=== PATIENT | female | born 1955 | race Caucasian/White ===

== ENCOUNTER → 2024-06-19 12:23 | Outpatient (REF) | payer MEDICARE, OTHER, SELFPAY | LOC: HWWDC 12:23 | PROVIDERS: ATTENDING PHYSICIAN Family Medicine | DX: Z12.31 Encounter for screening mammogram for malignant neoplasm of breast (principal) | CPT/HCPCS: 77063; 77067 ==

== ENCOUNTER → 2024-11-07 10:55 | Outpatient (REF) | payer MEDICARE, OTHER, SELFPAY | LOC: MRI 3T 10:55 | PROVIDERS: ATTENDING PHYSICIAN Physician Assistant; FAMILY PHYSICIAN Family Medicine | DX: M79.671 Pain in right foot (principal) | CPT/HCPCS: 73718 ==

== ENCOUNTER → 2025-01-03 11:59 | Outpatient (REF) | payer MEDICARE, OTHER, SELFPAY | LOC: MRI 3T 11:59 | PROVIDERS: ATTENDING PHYSICIAN Physical Medicine & Rehabilitation; FAMILY PHYSICIAN Family Medicine | DX: M54.12 Radiculopathy, cervical region (principal) | CPT/HCPCS: 72141 ==

== ENCOUNTER → 2025-06-28 13:27 | Outpatient (REF) | payer MEDICARE, OTHER, SELFPAY | LOC: HWWDC 13:27 | PROVIDERS: ATTENDING PHYSICIAN Family Medicine | DX: Z12.31 Encounter for screening mammogram for malignant neoplasm of breast (principal) | CPT/HCPCS: 77063; 77067 ==

== ENCOUNTER 2025-10-31 09:43 | Emergency (ER) | payer MEDICARE, OTHER, SELFPAY ==
[2025-10-31 09:44] VITALS: BP 148/83
--- NOTE | 2025-10-31 10:21 | ED.GENMED ---
History of Present Illness
General
Chief Complaint: Musculo-Skeletal Complaint
Source: patient
Exam Limitations: none
Time Seen by Provider: 10/31/25 09:46
Nursing documentation reviewed up to this point in time: agreed with
History of Present Illness
History of Present Illness:
see MDM
Past History
Past History
ED Past Medical History: Psychiatric
ED Past Surgical History: Other (Abdominoplasty)
Social History
Tobacco: Non-smoker
Alcohol: None
Drug: None
Personal: Single
Living: with family
Review of Systems
Review of Systems
Allergies reviewed?: Yes
All Other Systems: Not applicable
Phy Exam
Physical Exam
Physical Exam:
GENERAL: Alert , in no apparent distress
HEAD: NCAT
NECK: no midline tenderness, active ROM intact, no paraspinal muscle tenderness;
EYE: pupils equal and reactive, EOMs intact.
ENT: o/p clr, mmm. no hemotympanum
CARDIAC: Regular rate and rhythm, no edema
LUNGS: Clear breath sounds bilaterally, no acute respiratory distress, no wheezes/rales/rhonchi
ABDOMEN: Soft, without focal tenderness, no r/g, no cvat
NEUROLOGICAL: Alert and oriented, no focal neuro deficits, CN intact, 5/5 strength, sensation intact
SKIN: Warm and dry,
MUSCULOSKELETAL: mild wrist deformity, normal pulse painful ROM
fingers/elbow/shoulder normal
PSYCH: Normal and appropriate interaction.
Course
Orders/Labs/Results
Orders:
Orders
10/31/25 09:49
Wrist, Left 3 Views CR [CR Wrist - Left Min 3 Views] Urgent
Comment:
Reason For Exam: injury pain
10/31/25 10:21
Acetaminophen [Tylenol] 650 mg PO NOW STA
Ibuprofen [Motrin] 600 mg PO NOW STA
Vital Signs
Initial and Last Documented VS:
Initial Vital Signs
Temp Pulse Resp BP Pulse Ox
36.5 C 77 20 148/83 99
10/31/25 09:44 10/31/25 09:44 10/31/25 09:44 10/31/25 09:44 10/31/25 09:44
Last Documented Vital Signs
Temp Pulse Resp BP Pulse Ox
36.5 C 77 20 148/83 99
10/31/25 09:44 10/31/25 09:44 10/31/25 09:44 10/31/25 09:44 10/31/25 10:26
MDM/Problems Addressed
Differential Diagnosis Includes:
see MDM
MDM/Problems Addressed:
Note:
CHIEF COMPLAINT(S)
- Left wrist pain after a fall.
HISTORY OF PRESENT ILLNESS
The patient is a 70-year-old female who presented following a backward fall when she was with her dog. pt tripped over a rock and landed flat on her back and injured her left wrist. The patient reports immediate wrist pain but denies loss of
consciousness, head injury, neck pain, or any other injuries.
no numbness/tingling/weakness in the fingers
no other injuries
nothing taken for pain
pain is worse with wrist movement
no AC
SOCIAL HISTORY
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
REVIEW OF SYSTEMS
- Musculoskeletal: Left wrist pain following a fall.
- Neurological: Denies loss of consciousness, numbness, or tingling.
PHYSICAL EXAM
see above
- Nursing notes reviewed and vital signs reviewed.
PROBLEM LIST
- Acute: Intra-articular fracture of the left radius.
- Chronic: None identified.
PLAN
1. Immobilize the fracture with a special splint using fiberglass material.
2. Administer Tylenol; provide additional analgesic as needed.
3. Send a photo of the X-ray to orthopedic specialists for further assessment.
4. Advise follow-up with an document improvement specialist within one week for potential casting or other intervention.
DIFFERENTIAL DIAGNOSIS
The Differential Diagnosis includes, in no particular order and is not limited to:
1. Simple wrist fracture
2. Comminuted fracture
3. Greenstick fracture
4. Buckle (Torus) fracture
5. Osteochondral lesion
6. Dislocation of the wrist
7. Soft tissue injury
8. Tendon injury
9. Ulnar nerve injury
10. Radial nerve injury
70 y/o F
mechanical fall backward onto L wrist
no other injuries
no vomiting/headache/confusion/loc
on exam pt has very mild deformity L wrist with painful limited ROM
no numbness/tingling
other exam is normal
xrays indep reivewed
comminuted intraarticular fx of distal radius
d/w dr. mayo from ortho
sugar tong splitn and f/u with ortho
*Pulse Oximetry
SaO2: 99
Oxygen Mode of Delivery: Room air
Patient hypoxic: no (99)
*Critical Care Note
Total Time (30-74mins, 75-104mins- exclusive of procedures): Not Applicable
ED Attending Note
-
Portions of this chart may have been created with voice recognition software.� Occasional wrong word or��sound alike� substitutions may have occurred due to the inherent limitations of voice recognition software.
Discharge Plan
Departure
Patient Disposition: Home (Routine Discharge)
Date of Disposition: 10/31/25
Time of Disposition: 10:40
Patient with high blood pressure during this ER visit?: Yes
Condition: Fair
Discharge Problem:
Distal radius fracture, left
Instructions: Wrist Fracture (DC)
Prescriptions:
No Action
lorazepam 0.5 MG tablet
0.5 mg PO BIDPRN PRN (Reason: anxiety)
temazepam 15 MG capsule
15 mg PO HS
zolpidem 10 MG tablet
10 mg PO HS
metaxalone [Skelaxin] 800 MG tablet
800 mg PO TID
Referrals:
Lolly Jacob MD [Family Provider, Family Practice]
Ramon Fraser MD [Active, Orthopedics] - Follow up in 2-3 days
Activity Restrictions/Additional Instructions:
YOU BROKE YOUR RADIUS
CALL TOMORROW AND MAKE APPT WITH ORTHO
TYLENOL/MOTRIN ALTERNATING FOR PAIN
ICE OVER TOP OF THE SPLINT IS OK
DO NOT GET SPLINT WET
USE SLING NEEDED
MAKE SURE TO MOVE YOUR SHOULDER EVERY FEW HOURS TO AVOID FROZEN SHOULDER
RETURN FO RANY CONCERNS.
Interventions
Interventions:
*Risk Screen - Suicide Last Done: 10/31/25 09:47
*General Assessment Last Done: 10/31/25 10:48
*Neglect/Abuse Screening Last Done: 10/31/25 10:48
*ED COVID-19 Vaccine History Last Done: 10/31/25 09:44
*ED Influenza Vaccine History Last Done: 10/31/25 09:44
[facility] Fall Risk Assessment Tool Last Done: 10/31/25 10:05
*Nursing Disposition Last Done: 10/31/25 10:48
ED-Musculoskeletal Assessment Last Done: 10/31/25 10:38
Discharge Date and Time
Discharge Date/Time: 10/31/25 10:54
Print Language: NIUEAN
[2025-10-31] MEDS: MOTRIN 600 MG PO (10:36)
[2025-10-31] MEDS: TYLENOL 650 MG PO (10:37)
== END 2025-10-31 10:54 | disposition home or self-care (01) ==
LOC: EMR 09:43
PROVIDERS: EMERGENCY PHYSICIAN Emergency Medicine; FAMILY PHYSICIAN Family Medicine
DX: S52.592A Other fractures of lower end of left radius, initial encounter for closed fracture (principal); W01.0XXA Fall on same level from slipping, tripping and stumbling without subsequent striking against object, initial encounter
CPT/HCPCS: 99283; 29125; 73110

== ENCOUNTER → 2025-11-01 14:07 | Outpatient (REF) | payer MEDICARE, OTHER, SELFPAY ==
[2025-11-01 15:39] LABS: Hematocrit 38.3 % (37.0-47.0); Hemoglobin 12.4 g/dL (12.0-16.0); Mean Corp Hgb Conc. 32.4 g/dL (33.0-37.0); Mean Corpuscular Volume 92.7 fL (81.0-99.0); Nucleated Red Blood Cells % 0 %; Platelet Count 214 10^3/uL (130-400); Red Cell Dist. Width 13.0 % (11.5-14.5)
[2025-11-01 16:09] LABS: Blood Urea Nitrogen 18 mg/dl (7-17); Calcium 9.3 mg/dl (8.4-10.2); Carbon Dioxide 28 mmol/L (22-30); Chloride 105 mmol/L (98-107); Glucose 84 mg/dl (70-99); Potassium 4.3 mmol/L (3.5-5.1); Sodium 136 mmol/L (135-145); eGFR > 60.00
[2025-11-03 16:33] LABS: ALT (SGPT) 28 U/L (0-35); AST (SGOT) 38 U/L (14-36); Albumin 4.5 g/dl (3.5-5.0); Alkaline Phosphatase 75 U/L (38-126); Total Protein 6.9 g/dl (6.3-8.2)
== END ==
LOC: REG 14:07
PROVIDERS: ATTENDING PHYSICIAN Orthopaedic Surgery
DX: Z01.818 Encounter for other preprocedural examination (principal)
CPT/HCPCS: 36415; 80048; 80053; 85025; 93005

== ENCOUNTER → 2025-11-08 13:29 | Outpatient (REF) | payer MEDICARE, OTHER, SELFPAY | LOC: HWRAD 13:29 | PROVIDERS: ATTENDING PHYSICIAN Orthopaedic Surgery; FAMILY PHYSICIAN Family Medicine | DX: M25.532 Pain in left wrist (principal) | CPT/HCPCS: 73200 ==

== ENCOUNTER 2025-11-09 06:27 | Day surgery (SDC) | payer MEDICARE, OTHER, SELFPAY ==
[2025-11-09] VITALS (8 sets, daily range): BP systolic 132–163; BP diastolic 75–90; BMI 22.0
[2025-11-09] MEDS: CELEBREX 200 MG PO (10:55)
[2025-11-09] MEDS: TYLENOL 1000 MG PO (10:56)
[2025-11-09] MEDS: NORMOSOL-R/PLASMALYTE-A 1000 IV (10:56)
== END 2025-11-09 15:46 | disposition home or self-care (01) ==
LOC: SDS 06:27
PROVIDERS: ATTENDING PHYSICIAN Orthopaedic Surgery
DX: S52.572A Other intraarticular fracture of lower end of left radius, initial encounter for closed fracture (principal); X58.XXXA Exposure to other specified factors, initial encounter
CPT/HCPCS: 25609; C1713